=== PATIENT | male | born 1995 | race African-American/Black ===

== ENCOUNTER 2021-10-31 16:57 | Emergency (ER) | payer OTHER ==
[2021-10-31] MEDS ORDERED: Lidocaine/Transparent Dressing 1 EACH KIT ONE (17:41)
[2021-10-31] MEDS ORDERED: Boostrix 0.5 ML (Tdap) VIAL ONE (17:41)
[2021-10-31] MEDS ORDERED: Ketorolac Tromethamine 30 MG/ML VIAL ONE (17:48)
== END 2021-10-31 19:14 | disposition home or self-care (01) ==
LOC: CSHERS 16:57
DX: S01.511A Laceration without foreign body of lip, initial encounter (principal); Z23 Encounter for immunization; W22.8XXA Striking against or struck by other objects, initial encounter
CPT/HCPCS: 12011; 40650; 90471; 90715; 96372; J1885

== ENCOUNTER 2021-11-05 13:21 | Emergency (ER) | payer OTHER, SELFPAY ==
[2021-11-06 11:15] LABS: SARS-CoV-2 PCR by NAA Not Detected (NotDetected)
== END 2021-11-05 14:40 | disposition home or self-care (01) ==
LOC: CSHERS 13:21
DX: J10.1 Influenza due to other identified influenza virus with other respiratory manifestations (principal); S01.81XD Laceration without foreign body of other part of head, subsequent encounter; Z20.822 Contact with and (suspected) exposure to COVID-19
CPT/HCPCS: 87804; 99283; U0003; U0005

== ENCOUNTER 2022-04-23 22:29 | Emergency (ER) | payer OTHER, SELFPAY ==
[2022-04-23] MEDS ORDERED: HYDROcodone/Acetaminophen 5/325 mg Tablet ONE (23:30)
== END 2022-04-23 23:35 | disposition home or self-care (01) ==
LOC: CSHERS 22:29
DX: S93.402A Sprain of unspecified ligament of left ankle, initial encounter (principal); X50.0XXA Overexertion from strenuous movement or load, initial encounter

== ENCOUNTER 2024-08-28 08:07 | Emergency (ER) | payer SELFPAY ==
[2024-08-28 08:38] LABS: Bilirubin Neg (Negative); Blood, Urine 25 (Negative); Clarity Cloudy (Clear); Glucose, Urine (Dipstick) Normal (Negative); Ketone, Urine Negative (Negative); Leukocyte 500 (Negative); Nitrite Negative (Negative); Protein, Urine (Dipstick) 30 mg/dl (Neg-Trace); Specific Gravity, Urine 1.025 (1.005-1.030)
[2024-08-28 09:06] LABS: Bacteria/HPF 3+ HPF (None Seen); CAUTI Indications for Culture Dysuria,urgency,freq; RBC/HPF 0-3 HPF (0-3); WBC/HPF Greater than 50 HPF (0-3)
[2024-08-28 09:07] LABS: Urine Culture Reflex Yes Yes
[2024-08-28] MEDS ORDERED: Azithromycin 250 MG TAB ONE (10:14)
[2024-08-28] MEDS ORDERED: cefTRIAXone (ROCEPHIN) 500 MG VIAL ONE ×2 (10:15→10:18)
[2024-08-28] MEDS ORDERED: Sterile Water 10 ML ONE (10:19)
[2024-08-28 22:07] LABS: Chlam.trachomatis by PCR,Urine Not Detected (NotDetected); GC N.gonorrhoeae PCR,UrineVOID DETECTED (NotDetected)
== END 2024-08-28 10:35 | disposition home or self-care (01) ==
LOC: CSHERS 08:07
DX: A64 Unspecified sexually transmitted disease (principal)
CPT/HCPCS: 81001; 87086; 87491; 87591; 96372; 99284; J0696

== ENCOUNTER 2025-06-16 07:21 | Emergency (ER) | payer SELFPAY ==
[2025-06-16] MEDS ORDERED: cefTRIAXone (ROCEPHIN) 500 MG VIAL ONE (08:01)
[2025-06-16 08:26] LABS: Glucose, Urine (Dipstick) Normal (Negative); Leukocyte 25 (Negative); Protein, Urine (Dipstick) 30 mg/dl (Neg-Trace); Specific Gravity, Urine 1.030 (1.005-1.030)
[2025-06-16 08:44] LABS: Bacteria/HPF 1+ HPF (None Seen); CAUTI Indications for Culture Acute Hematuria; WBC/HPF Greater Than 50 HPF (0-3)
[2025-06-16 08:45] LABS: Urine Culture Reflex Yes Yes
[2025-06-17 10:39] LABS: Chlam.trachomatis by PCR,Urine Not Detected (NotDetected); GC N.gonorrhoeae PCR,UrineVOID Not Detected (NotDetected)
== END 2025-06-16 09:00 | disposition home or self-care (01) ==
LOC: CSHERS 07:21
DX: N34.2 Other urethritis (principal); R03.0 Elevated blood-pressure reading, without diagnosis of hypertension; Z55.6 Problems related to health literacy
CPT/HCPCS: 81001; 87086; 87491; 87591; 96372; 99283; J0696

== ENCOUNTER 2025-08-08 09:37 | Emergency (ER) | payer SELFPAY ==
[2025-08-08] MEDS ORDERED: cefTRIAXone (ROCEPHIN) 500 MG VIAL ONE (10:25)
[2025-08-08 10:30] LABS: Glucose, Urine (Dipstick) Normal (Negative); Leukocyte 100 (Negative); Protein, Urine (Dipstick) 15 mg/dl (Neg-Trace); Specific Gravity, Urine 1.025 (1.005-1.030)
[2025-08-08 11:00] LABS: Bacteria/HPF 1+ HPF (None Seen); CAUTI Indications for Culture Pelvic or flank pain; WBC/HPF Greater Than 50 HPF (0-3)
[2025-08-08 11:02] LABS: Urine Culture Reflex Yes Yes
[2025-08-09 01:19] LABS: Chlam.trachomatis by PCR,Urine Not Detected (NotDetected); GC N.gonorrhoeae PCR,UrineVOID Not Detected (NotDetected)
== END 2025-08-08 10:44 | disposition home or self-care (01) ==
LOC: CSHERS 09:37
DX: N34.1 Nonspecific urethritis (principal)
CPT/HCPCS: 81001; 87086; 87491; 87591; 96372; 99283; J0696